=== PATIENT | female | born 1940 | race Hispanic/Latino ===

== ENCOUNTER 2016-10-24 09:23 | Outpatient (CLI) | payer MEDICARE ==
--- NOTE | 2016-10-24 16:27 | Magnetic Resonance Report ---
MRI LEFT HIP WITHOUT CONTRAST: 10/24/16 CLINICAL: Left hip pain. TECHNIQUE: Coronal and sagittal T1, coronal STIR and coronal and axial proton density fat sat sequences on a 1.5 Kimberly magnet. FINDINGS: No fracture or dislocation. Normal marrow signal of the left hip and acetabulum except for mild acetabular eburnation on the T1 sequence. No joint effusion. The muscles have normal signal. No fluid collection associated with the left hip. There is moderately severe osteoarthritis of the right hip with subchondral cyst formation of the femoral head and acetabulum. Mild flattening of the right femoral head with osteophytes. No right hip joint effusion. There is a multiloculated fluid collection the posterior and superior to the right hip. It measures 3.0 x 3.1 x 2.0 cm. The pelvic bones are intact except for mild bilateral superior acetabular eburnation. IMPRESSION:1. Mild osteoarthritis of the left hip. 2. 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 3. No fracture or dislocation. 4. No AVN. 5. An extra-articular multiloculated 3 cm fluid collection superior and posterior to the right hip is probably a collection of small ganglion cysts.
== END 2016-10-24 09:24 | disposition home or self-care (01) ==
LOC: SPVIMAG 09:23
PROVIDERS: ATTEND Psychiatry & Neurology Neurology
DX: M16.12 Unilateral primary osteoarthritis, left hip (principal); M16.11 Unilateral primary osteoarthritis, right hip
CPT/HCPCS: 73721

== ENCOUNTER 2018-06-27 23:22 | Inpatient (IN) | payer MEDICARE ==
--- NOTE | 2018-06-27 23:38 | Emergency Department Report ---
ED Shortness of Breath HPI - General Stated Complaint: CATRACHITO Time Seen by Provider: 06/27/18 23:29 - History of Present Illness Initial Comments: 78-year-old female presents to the ED with complaint of shortness of breath. Patient reports she was admitted here approximately one month ago for pneumonia. Patient states over the last couple of days she has been experiencing palpitations and generalized weakness. Patient reports dry cough as well. Denies fever. Patient states today she could hear herself wheezing, so decided to call EMS. EMS states patient had O2 sats of 91% on room air upon arrival. She was given 2.5 mg albuterol meds by paramedics. Patient denies chest pain. MD Complaint: shortness of breath -: days(s) (1) Severity: moderate Consistency: constant Improves With: nothing Worsens With: nothing Associated Symptoms: cough - Related Data Previous Rx's Medication Instructions Recorded Last Taken Type Aspirin [Aspirin BABY CHEW TAB] 81 mg PO QDAY #30 tab.chew 06/07/18 06/27/18 Rx AtorvaSTATin [Lipitor] 20 mg PO QHS tablet 06/07/18 06/27/18 Rx Furosemide [Lasix TAB] 40 mg PO QDAY #30 tablet 06/07/18 06/27/18 Rx LORazepam [Ativan] 1 mg PO Q6H PRN #10 tablet 06/07/18 06/27/18 Rx Metoprolol [Lopressor TAB] 25 mg PO BID #60 tablet 06/07/18 06/27/18 Rx Sertraline [Zoloft] 25 mg PO QDAY #30 tablet 06/07/18 06/27/18 Rx traMADol [Ultram 50 MG tab] 50 mg PO TID PRN #15 06/07/18 06/27/18 Rx Allergies Allergy/AdvReac Type Severity Reaction Status Date / Time No Known Allergies Allergy Verified 03/10/14 23:31 ED Review of Systems ROS: Stated complaint: CATRACHITO Other details as noted in HPI Comment: All other systems reviewed and negative Constitutional: denies: chills, fever Respiratory: cough, shortness of breath, wheezing Cardiovascular: palpitations. denies: chest pain Gastrointestinal: denies: nausea, vomiting Musculoskeletal: other (denies leg swelling) ED Past Medical Hx - Past Medical History Hx Hypertension: No Hx Heart Attack/AMI: Yes Hx Congestive Heart Failure: Yes Hx Diabetes: No Hx Deep Vein Thrombosis: No Hx Asthma: No Hx COPD: Yes Hx HIV: No - Surgical History Hx Coronary Stent: No Hx Pacemaker: No Hx Internal Defibrillator: No Additional Surgical History: R hip surgery, 03/29/18 - Social History Smoking Status: Never Smoker - Medications Home Medications: Home Medications Medication Instructions Recorded Confirmed Last Taken Type Aspirin [Aspirin BABY CHEW TAB] 81 mg PO QDAY #30 tab.chew 06/07/18 06/28/18 06/27/18 Rx AtorvaSTATin [Lipitor] 20 mg PO QHS tablet 06/07/18 06/28/18 06/27/18 Rx Furosemide [Lasix TAB] 40 mg PO QDAY #30 tablet 06/07/18 06/28/18 06/27/18 Rx LORazepam [Ativan] 1 mg PO Q6H PRN #10 tablet 06/07/18 06/28/18 06/27/18 Rx Metoprolol [Lopressor TAB] 25 mg PO BID #60 tablet 06/07/18 06/28/18 06/27/18 Rx Sertraline [Zoloft] 25 mg PO QDAY #30 tablet 06/07/18 06/28/18 06/27/18 Rx traMADol [Ultram 50 MG tab] 50 mg PO TID PRN #15 06/07/18 06/28/18 06/27/18 Rx ED Physical Exam - General General appearance: alert, in no apparent distress - Head Head exam: Present: atraumatic, normocephalic - Eye Eye exam: Present: normal appearance - ENT ENT exam: Present: mucous membranes moist - Neck Neck exam: Present: normal inspection - Respiratory Respiratory exam: Present: rales (left lung base) - Cardiovascular Cardiovascular Exam: Present: normal rhythm, tachycardia - GI/Abdominal GI/Abdominal exam: Present: soft. Absent: distended, tenderness - Extremities Exam Extremities exam: Absent: pedal edema, calf tenderness - Neurological Exam Neurological exam: Present: alert, oriented X3 - Psychiatric Psychiatric exam: Present: normal affect, normal mood - Skin Skin exam: Present: warm, dry, intact, normal color ED Course Vital Signs 06/27/18 06/27/18 06/27/18 23:30 23:34 23:45 Temperature 98.1 F Pulse Rate 122 H 102 H 100 H Respiratory 32 H 21 30 H Rate Blood Pressure 160/80 146/73 O2 Sat by Pulse 96 Oximetry 06/28/18 00:00 Temperature Pulse Rate 97 H Respiratory 24 Rate Blood Pressure 146/83 O2 Sat by Pulse Oximetry - Reevaluation(s) Reevaluation #1: 06/28/18 01:13 Advised pt that she would be admitted for CHF exacerbation. Pt reports she stopped taking her lasix b/c it made her go to the bathroom too much. ED Medical Decision Making - Lab Data Result diagrams: 06/28/18 00:00 06/28/18 00:00 - EKG Data -: EKG Interpreted by Dc EKG shows normal: sinus rhythm, axis, intervals, QRS complexes - EKG Data Interpretation: other (T wave inversions V2) - Radiology Data Radiology results: report reviewed, image reviewed - Medical Decision Making 78-year-old female with CHF exacerbation due to noncompliance with medication. She stopped taking it because it makes her to the bathroom too much. Patient with initial O2 sats 91% on room air. Chest x-ray shows bilateral lower lobe infiltrates with elevation of BNP of 2,700. Patient afebrile, wbc's normal. This is likely a acute CHF exacerbation. Patient given Lasix 80 mg IV. EKG shows no ST changes, troponin normal. Dr. Spann, hospitalist, to admit the patient. - Differential Diagnosis pneumonia, bronchitis, pulm edema Critical Care Time: Yes (35) Critical care time in (mins) excluding proc time.: 35 Critical care attestation.: If time is entered above; I have spent that time in minutes in the direct care of this critically ill patient, excluding procedure time. Critical Care Time: 35 minutes ED Disposition Clinical Impression: Hypoxia, Acute exacerbation of CHF (congestive heart failure), Hypokalemia Disposition: OP ADMIT IP TO THIS HOSP Is pt being admited?: Yes Condition: Stable Referrals: PRIMARY CARE, [Primary Care Provider] - 3-5 Days Time of Disposition: 01:16
--- NOTE | 2018-06-28 00:13 | XRay Report ---
FINAL REPORT PROCEDURE: XR CHEST 1V AP TECHNIQUE: Chest radiograph anteroposterior view. CPT 43101 HISTORY: sob COMPARISON: 06/05/2018 FINDINGS: Heart: Normal. Mediastinum/Vessels: Normal. Lungs/Pleural space: Developing bilateral lower lung infiltrates. Slight left effusion is suspected. There is no evidence of pneumothorax. Bony thorax: No acute osseous abnormality. Life support devices: None. IMPRESSION: There are developing bilateral lower lung infiltrates. The slight left effusion is suspected..
[2018-06-28 00:16] LABS: Basophils % (Auto) 0.7 % (0.0-1.8); Eosinophils % (Auto) 0.5 % (0.0-4.3); Hematocrit 24.3 % (30.3-42.9); Hemoglobin 7.7 gm/dl (10.1-14.3); Lymphocytes # (Auto) 1.6 K/mm3 (1.2-5.4); Lymphocytes % (Auto) 30.2 % (13.4-35.0); Mean Corpuscular HGB Conc 32 % (30-34); Mean Corpuscular Volume 81 fl (79-97); Monocytes # (Auto) 0.3 K/mm3 (0.0-0.8); Monocytes % (Auto) 6.3 % (0.0-7.3); Platelet Count 181 K/mm3 (140-440); Red Blood Count 2.99 M/mm3 (3.65-5.03); Red Cell Distribution Width 18.9 % (13.2-15.2)
[2018-06-28 00:26] LABS: INR 1.09 (0.87-1.13)
[2018-06-28 00:27] LABS: Partial Thromboplastin Time 25.3 Sec. (24.2-36.6)
[2018-06-28 00:38] LABS: BUN/Creatinine Ratio 24; Blood Urea Nitrogen 12 mg/dL (7-17); Calcium 8.1 mg/dL (8.4-10.2); Hemolysis Index 7
[2018-06-28] MEDS ORDERED: LASIX IV ONE (00:50)
[2018-06-28] MEDS ORDERED: K-DUR PO ONE (00:51)
[2018-06-28] MEDS ORDERED: ZOFRAN IV PRN (02:12)
[2018-06-28] MEDS ORDERED: SODIUM CHLORIDE FLUSH SYRINGE 10 ML IV PRN (02:12)
--- NOTE | 2018-06-28 02:14 | History and Physical Report ---
History of Present Illness Date of examination: 06/28/18 History of present illness: 78-year-old man history of coronary artery disease, CHF, and chronic pain came to the emergency room complaining of not feeling well today, she feels tired, hoarse. She states she feels something is wrong with her but she cannot explain it, she denies shortness of breath but admitted to the emergency room physician that she was short of breath just discharged from the hospital on June 07, she was treated for pneumonia Review of systems Constitutional: no weight loss, chills, fever Ears, eyes, nose, mouth and throat: no nasal congestion, no nasal discharge, no sinus pressure, no vision change, no red eye. Neck: No neck pain or rigidity. Cardiovascular: no palpitations, chest pain Respiratory: no cough, shortness of breath Gastrointestinal: no hematochezia, abdominal pain Genitourinary : no frequency , no hematuria Musculoskeletal: no joint swelling or muscle ache Integumentary: no rash, no pruritis Neurological: no parathesias, no focal weakness Endocrine: no cold or heat intolerance, no polyuria or polydipsia Hematologic/Lymphatic: no easy bruising, no easy bleeding, no gland swelling Allergic/Immunologic: no urticaria, no angioedema. PAST SURGICAL HISTORY: CABG, back surgery, hip surgery SOCIAL HISTORY: Denies alcohol, tobacco, drugs FAMILY HISTORY: Hypertension Medications and Allergies Allergies Allergy/AdvReac Type Severity Reaction Status Date / Time No Known Allergies Allergy Verified 03/10/14 23:31 Home Medications Medication Instructions Recorded Confirmed Last Taken Type RX: Aspirin [Aspirin BABY CHEW TAB] 81 mg PO QDAY #30 tab.chew 06/07/18 06/28/18 06/27/18 Rx RX: AtorvaSTATin [Lipitor] 20 mg PO QHS tablet 06/07/18 06/28/18 06/27/18 Rx RX: LORazepam [Ativan] 1 mg PO Q6H PRN #10 tablet 06/07/18 06/28/18 06/27/18 Rx RX: Metoprolol [Lopressor TAB] 25 mg PO BID #60 tablet 06/07/18 06/28/18 0 06/27/18 Rx RX: Sertraline [Zoloft] 25 mg PO QDAY #30 tablet 06/07/18 06/28/18 06/27/18 Rx RX: Furosemide [Lasix TAB] 40 mg PO QDAY PRN #30 tablet 07/01/18 06/28/18 06/27/18 Rx RX: Gabapentin [Neurontin] 100 mg PO Q8HR #90 capsule 07/01/18 Unknown Rx levoFLOXacin [Levaquin] 750 mg PO QDAY #3 tablet 07/01/18 Unknown Rx Active Meds: Active Medications Levofloxacin/Dextrose (Levaquin 500mg/100ml) 500 mg in 100 mls @ 100 mls/hr IV Q24HR [facility]; Protocol Exam - Physical Exam Narrative exam: General Apperance: The patient sitting in bed no acute distress HEENT: Normocephalic, atraumatic. Pupils equally round and reactive to light, extraocular movement intact, and no sclericterus or JVD or thyromegaly or nodule. Neck supple, no carotid bruit, mucous membranes moist, no exudate or erythema Heart: S1-S2, regular is rhythm Lungs: Decreased breath sound at bases bilaterally, breathing comfortable Abdomen: Positive bowel sounds, soft, nontender, nondistended, no organomegaly Extremities: No edema cyanosis clubbing Skin: no rash, nodule, warm and dry Neuro: Cranial nerves II through XII intact, speech is fluent, motor intact , sensation intact - Constitutional Vitals: Temp Pulse Resp BP Pulse Ox 98.1 F 93 H 26 H 148/73 98 06/27/18 23:34 06/28/18 01:45 06/28/18 01:45 06/28/18 01:45 06/28/18 01:45 Results - Labs CBC & Chem 7: 06/29/18 05:16 06/29/18 05:16 Labs: Abnormal lab results 06/28/18 06/28/18 Range/Units 00:00 00:00 RBC 2.99 L (3.65-5.03) M/mm3 Hgb 7.7 L (10.1-14.3) gm/dl Hct 24.3 L (30.3-42.9) % MCH 26 L (28-32) pg RDW 18.9 H (13.2-15.2) % Potassium 2.6 L* (3.6-5.0) mmol/L Chloride 107.8 H (98-107) mmol/L Creatinine 0.5 L (0.7-1.2) mg/dL Glucose 110 H (65-100) mg/dL Calcium 8.1 L (8.4-10.2) mg/dL NT-Pro-B Natriuret Pep 2759 H (0-900) pg/mL - Imaging and Cardiology EKG: image reviewed Chest x-ray: report reviewed Assessment and Plan Assessment Failure to thrive Bilateral pneumonia, present on the last admission coronary artery disease CHF Chronic pain Admitted to medicine consult physical therapy Start Levaquin, follow blood cultures Continue appropriate outpatient medications Start DVT prophylaxis
[2018-06-28] MEDS: LEVAQUIN 500MG/100ML 500 MG/100 ML BAG IV SCH ×2 (02:34→09:40)
[2018-06-28] MEDS: TYLENOL PO PRN ×4 (06:02→23:30)
[2018-06-28] MEDS: LOVENOX SUB-Q SCH ×2 (09:39→09:52)
[2018-06-28] MEDS: BABY ASPIRIN PO SCH (09:39)
[2018-06-28] MEDS: ZOLOFT PO SCH (09:39)
[2018-06-28] MEDS: SODIUM CHLORIDE FLUSH SYRINGE 10 ML IV SCH ×2 (09:40→21:41)
[2018-06-28] MEDS: LOPRESSOR PO SCH ×2 (09:40→21:38)
[2018-06-28] MEDS ORDERED: K-DUR PO NR (09:47)
[2018-06-28] MEDS ORDERED: LASIX PO SCH (10:00)
--- NOTE | 2018-06-28 15:31 | Event Note ---
Date: 06/28/18 73-year-old man history of coronary artery disease, CHF, and chronic pain came to the emergency room complaining of not feeling well. Wait for 2-D echo result, continue current management and as dictated in H&P.
[2018-06-28] MEDS: ATIVAN PO PRN ×2 (17:11→23:31)
[2018-06-28] MEDS: NEURONTIN PO SCH ×2 (21:51→21:52)
[2018-06-29 05:52] LABS: Basophils % (Auto) 0.4 % (0.0-1.8); Eosinophils # (Auto) 0.1 K/mm3 (0.0-0.4); Eosinophils % (Auto) 1.7 % (0.0-4.3); Hematocrit 25.6 % (30.3-42.9); Hemoglobin 7.9 gm/dl (10.1-14.3); Lymphocytes # (Auto) 2.3 K/mm3 (1.2-5.4); Lymphocytes % (Auto) 47.4 % (13.4-35.0); Mean Corpuscular HGB Conc 31 % (30-34); Mean Corpuscular Volume 81 fl (79-97); Monocytes # (Auto) 0.4 K/mm3 (0.0-0.8); Monocytes % (Auto) 8.3 % (0.0-7.3); Platelet Count 197 K/mm3 (140-440); Red Blood Count 3.17 M/mm3 (3.65-5.03); Red Cell Distribution Width 18.8 % (13.2-15.2)
[2018-06-29] MEDS: NEURONTIN PO SCH ×3 (06:01→21:57)
[2018-06-29 06:23] LABS: BUN/Creatinine Ratio 23; Blood Urea Nitrogen 14 mg/dL (7-17); Calcium 9.2 mg/dL (8.4-10.2); Hemolysis Index 2
[2018-06-29] MEDS: LEVAQUIN 500MG/100ML 500 MG/100 ML BAG IV SCH (09:52)
[2018-06-29] MEDS: BABY ASPIRIN PO SCH (09:53)
[2018-06-29] MEDS: LOPRESSOR PO SCH ×2 (09:53→21:57)
[2018-06-29] MEDS: ZOLOFT PO SCH (09:54)
[2018-06-29] MEDS: LOVENOX SUB-Q SCH ×2 (09:54→09:55)
--- NOTE | 2018-06-29 12:39 | Consultation ---
History of Present Illness Consult date: 06/29/18 Medications and Allergies Allergies Allergy/AdvReac Type Severity Reaction Status Date / Time No Known Allergies Allergy Verified 03/10/14 23:31 Home Medications Medication Instructions Recorded Confirmed Last Taken Type Aspirin [Aspirin BABY CHEW TAB] 81 mg PO QDAY #30 tab.chew 06/07/18 06/28/18 06/27/18 Rx AtorvaSTATin [Lipitor] 20 mg PO QHS tablet 06/07/18 06/28/18 06/27/18 Rx Furosemide [Lasix TAB] 40 mg PO QDAY #30 tablet 06/07/18 06/28/18 06/27/18 Rx LORazepam [Ativan] 1 mg PO Q6H PRN #10 tablet 06/07/18 06/28/18 06/27/18 Rx Metoprolol [Lopressor TAB] 25 mg PO BID #60 tablet 06/07/18 06/28/18 06/27/18 Rx Sertraline [Zoloft] 25 mg PO QDAY #30 tablet 06/07/18 06/28/18 06/27/18 Rx traMADol [Ultram 50 MG tab] 50 mg PO TID PRN #15 06/07/18 06/28/18 06/27/18 Rx Active Meds: Active Medications Acetaminophen (Tylenol) 650 mg PO Q4H PRN PRN Reason: Pain MILD(1-3)/Fever >100.5/MC Last Admin: 06/28/18 23:30 Dose: 650 mg Documented by: Aspirin (Baby Aspirin) 81 mg PO QDAY [facility] Last Admin: 06/29/18 09:53 Dose: 81 mg Documented by: Atorvastatin Calcium (Lipitor) 20 mg PO QHS [facility] Last Admin: 06/28/18 21:38 Dose: 20 mg Documented by: Enoxaparin Sodium (Lovenox) 40 mg SUB-Q QDAY [facility] Last Admin: 06/29/18 09:55 Dose: Not Given Documented by: Furosemide (Lasix) 40 mg IV 0600,1800 [facility] Gabapentin (Neurontin) 100 mg PO Q8HR [facility] Last Admin: 06/29/18 06:01 Dose: Not Given Documented by: Levofloxacin/Dextrose (Levaquin 500mg/100ml) 500 mg in 100 mls @ 100 mls/hr IV Q24HR [facility]; Protocol Last Admin: 06/29/18 09:52 Dose: 100 mls/hr Documented by: Lorazepam (Ativan) 1 mg PO Q6H PRN PRN Reason: Anxiety Last Admin: 06/28/18 23:31 Dose: 1 mg Documented by: Metoprolol Tartrate (Lopressor) 25 mg PO BID [facility] Last Admin: 06/29/18 09:53 Dose: 25 mg Documented by: Ondansetron HCl (Zofran) 4 mg IV Q8H PRN PRN Reason: Nausea And Vomiting Sertraline HCl (Zoloft) 25 mg PO QDAY [facility] Last Admin: 06/29/18 09:54 Dose: Not Given Documented by: Sodium Chloride (Sodium Chloride Flush Syringe 10 Ml) 10 ml IV BID [facility] Last Admin: 06/28/18 21:41 Dose: 10 ml Documented by: Sodium Chloride (Sodium Chloride Flush Syringe 10 Ml) 10 ml IV PRN PRN PRN Reason: LINE FLUSH Physical Examination Vital Signs Pulse Resp 122 H 32 H 06/27/18 23:30 06/27/18 23:30 Results 06/29/18 05:16 06/29/18 05:16 CBC 06/29/18 Range/Units 05:16 WBC 4.8 (4.5-11.0) K/mm3 RBC 3.17 L (3.65-5.03) M/mm3 Hgb 7.9 L (10.1-14.3) gm/dl Hct 25.6 L (30.3-42.9) % Plt Count 197 (140-440) K/mm3 Lymph # 2.3 (1.2-5.4) K/mm3 [place] # 0.4 (0.0-0.8) K/mm3 Eos # 0.1 (0.0-0.4) K/mm3 Baso # 0.0 (0.0-0.1) K/mm3 Comprehensive Metabolic Panel 06/29/18 Range/Units 05:16 Sodium 143 (137-145) mmol/L Potassium 4.0 (3.6-5.0) mmol/L Chloride 103.9 (98-107) mmol/L Carbon Dioxide 25 (22-30) mmol/L BUN 14 (7-17) mg/dL Creatinine 0.6 L (0.7-1.2) mg/dL Glucose 98 (65-100) mg/dL Calcium 9.2 (8.4-10.2) mg/dL Assessment and Plan Detailed Cardiology consult dictated.
[2018-06-29] MEDS: TYLENOL PO PRN (15:03)
--- NOTE | 2018-06-29 15:28 | Progress Note ---
Assessment and Plan Bilateral pneumonia -Continue antibiotics, nebs as needed Anemia, chronic - Continue to monitor H&H Acute on chronic systolic heart failure EF 40-45% - Gentle diuresis and cardiology consult, Monitor K+ Coronary artery disease/1VCABG - Continue Metoprolol 25 BID, low-dose aspirin, statin Moderate mitral regurgitation - Outpatient follow-up b/L LE pain - order venous doppler Hyperlipidemia, continue on statin General debility, PT consult Questionable dementia - Continue supportive care, patient lives with her daughter Brief history: This 78-year-old female with history of CHF, coronary artery disease, hyperlipidemia and questionable dementia presented to the hospital for not feeling well. Patient admitted to the hospital to treat pneumonia and hypokalemia. Physical exam: General Apperance: The patient sitting in bed no acute distress HEENT: Normocephalic, atraumatic. Pupils equally round and reactive to light, extraocular movement intact, and no sclericterus or JVD or thyromegaly or nodule. Neck supple, no carotid bruit, mucous membranes moist, no exudate or erythema Heart: S1-S2, regular is rhythm Lungs: Decreased breath sound at bases bilaterally, breathing comfortable Abdomen: Positive bowel sounds, soft, nontender, nondistended, no organomegaly Extremities: No edema cyanosis clubbing Skin: no rash, nodule, warm and dry Neuro: Cranial nerves II through XII intact, speech is fluent, motor intact , sensation intact Subjective Date of service: 07/01/18 Interval history: Patient seen and examined. Medical records and medication list reviewed. No acute event overnight noted by the RN. Patient complains of leg pain bilaterally. Potassium noted to be 2.6 this morning Patient is tolerating diet. Discussed plan of care at bedside with patient. Objective - Constitutional Vitals: Vital Signs - 12hr 06/29/18 15:18 O2 Sat by Pulse 95 Oximetry - Labs CBC & Chem 7: 06/29/18 05:16 06/29/18 05:16 Labs: Abnormal lab results 06/29/18 06/29/18 Range/Units 05:16 05:16 RBC 3.17 L (3.65-5.03) M/mm3 Hgb 7.9 L (10.1-14.3) gm/dl Hct 25.6 L (30.3-42.9) % MCH 25 L (28-32) pg RDW 18.8 H (13.2-15.2) % Lymph % (Auto) 47.4 H (13.4-35.0) % [place] % (Auto) 8.3 H (0.0-7.3) % Creatinine 0.6 L (0.7-1.2) mg/dL
--- NOTE | 2018-06-29 16:05 | Consultation ---
CARDIOLOGY CONSULTATION REFERRING PHYSICIAN: Kimberly Queen MD HISTORY OF PRESENT ILLNESS: An 78-year-old thin built, pleasant white woman with history of known coronary artery disease, history of CABG (one graft) several years ago, hyperlipidemia, was admitted with generalized weakness and progressive shortness of breath for 4-5 days before date of admission. No history of hypertension or diabetes mellitus. One set of troponin is negative. She has history of pneumonia in the recent past (admitted a month ago in this hospital) and was discharged home after treatment. Her chest x-ray during one view during this admission revealed bilateral lower lung infiltrates and some possible small left-sided pleural effusion. She also has had palpitations and complains of hoarseness of the voice. She has history of systolic congestive heart failure. PAST MEDICAL HISTORY: History of coronary artery disease, coronary artery bypass graft as described above. Her most recent echocardiogram was on 06/05/2018, which revealed lest-va-ikrydold left ventricular systolic dysfunction with EF around 40-45%, grade 1 diastolic left ventricular dysfunction, mitral annular calcification, moderate mitral regurgitation and mild tricuspid regurgitation. Mild pulmonary hypertension was seen with right ventricular systolic pressure of 44 mmHg. She was treated for pneumonia in this hospital a month ago. She has had back surgery, vein stripping surgery in the past. SOCIAL HISTORY: Not a smoker, not an alcoholic, no history of drug abuse. FAMILY HISTORY: Negative for premature coronary artery disease. PAST SURGICAL HISTORY: She has also had hip surgery in the past. The patient was scheduled for venous Doppler of the lower extremities and she was taken to the lab, but apparently during the procedure the patient wanted the procedure to be stopped as she was telling " ALLERGIES: None known. MEDICATIONS: Gabapentin 100 mg p.o. 3 times daily, IV Levaquin, lorazepam p.r.n., metoprolol tartrate 25 mg p.o. b.i.d., Zoloft 25 mg p.o. at bedtime daily, intravenous Lasix 40 mg b.i.d. REVIEW OF SYSTEMS: CARDIOVASCULAR: As described in the history. PULMONARY: As described in the history. BONE AND JOINTS: As described in the history. NEUROLOGICAL: She is confused on and off. Review of rest of the 10 systems is negative. PHYSICAL EXAMINATION: GENERAL: An 78-year-old thin built, pleasant white woman, not in distress. VITAL SIGNS: She is afebrile, pulse 85 per minute regular, blood pressure 140/86 mmHg, respirations 18 per minute. NEUROLOGIC: As described above. She is alert and awake, responds to simple questions pertinently. However, she is confused on and off and it appears that she has loss of memory for recent events. HEENT: Negative. NECK: Supple, no JVD, no bruit, no thyromegaly. HEART: PMI in the normal position, no palpable thrills or heart sounds. Auscultation of heart reveals S1, S2 heard, regular. S2 is loud, S4 is heard. No S3. Grade 2/6 harsh ejection systolic murmur is heard over the precardium. No rub. EXTREMITIES: Peripheral pulses felt. No edema. LUNGS: Mildly decreased air entry over both the bases. No bronchial breathing, no wheezing. ABDOMEN: Soft, benign. No organomegaly. SKIN: Negative. BONE AND JOINTS: Negative. LABORATORY DATA: Troponins as described above. ProBNP 2750. Potassium, BUN and creatinine within normal limits. Glucose 98. Chest x-ray findings as described in the history. EKG, normal sinus rhythm, left anterior fascicular block, atrial and ventricular premature contractions, left ventricular hypertrophy with repolarization changes. Nonspecific ST changes in the anterolateral leads and old anteroseptal myocardial infarction. IMPRESSION: 1. Bilateral pneumonia. 2. Acute on chronic systolic congestive heart failure. 3. Known coronary artery disease, history of CABG several years ago. 4. History of hyperlipidemia. 5. Moderate mitral regurgitation by echocardiogram. 6. History of pneumonia, which was treated fully a month ago. 7. General debility. 8. The patient is confused on and off possible dementia. RECOMMENDATIONS: 1. To continue current medications including intravenous antibiotics and intravenous diuretics. 2. Salt and fluid restriction is stressed. Further recommendations will follow. ADDENDUM At the time of admission, the patient was hypokalemic with potassium level of 2.8; now after potassium supplementation, this normalized now. The patient had EKGs and also the monitor. We would also check serum magnesium level and follow it up. JOB# [id number] [facility]
[2018-06-29] MEDS: ATIVAN PO PRN ×2 (17:52→23:49)
--- NOTE | 2018-06-29 19:19 | Vascular Lab Report ---
FINAL REPORT EXAM: VL VENOUS DUPLEX LE LT HISTORY: Bilateral intermittent pain in the right leg. History of left leg vein stripping 50 years a go TECHNIQUE: Ultrasound examination of the right lower extremity was performed to evaluate for DVT. PRIORS: None. FINDINGS: The common femoral, greater saphenous, femoral, and popliteal veins are well visualized and easily co mpressible throughout . Augmentation and color flow could not be performed as the patient requested t ermination of the exam early. Examination of the calf veins demonstrate good visualization and compressibility of the peroneal and posterior tibial veins . IMPRESSION: No evidence for DVT identified in the right lower extremity.
[2018-06-29] MEDS: SODIUM CHLORIDE FLUSH SYRINGE 10 ML IV SCH ×2 (21:57)
[2018-06-29] MEDS: LASIX IV SCH (23:35)
[2018-06-30] MEDS: NEURONTIN PO SCH ×3 (05:43→21:55)
[2018-06-30] MEDS: ATIVAN PO PRN ×3 (05:43→22:01)
[2018-06-30] MEDS: LASIX IV SCH ×2 (05:43→18:06)
[2018-06-30] MEDS: LOPRESSOR PO SCH ×2 (10:00→21:56)
[2018-06-30] MEDS: TYLENOL PO PRN (10:45)
[2018-06-30] MEDS: LEVAQUIN 500MG/100ML 500 MG/100 ML BAG IV SCH (10:46)
[2018-06-30] MEDS: BABY ASPIRIN PO SCH (10:47)
[2018-06-30] MEDS: LOVENOX SUB-Q SCH ×2 (10:47→10:51)
[2018-06-30] MEDS: ZOLOFT PO SCH (10:47)
[2018-06-30] MEDS: SODIUM CHLORIDE FLUSH SYRINGE 10 ML IV SCH ×2 (10:48→21:56)
--- NOTE | 2018-06-30 18:11 | Progress Note ---
Assessment and Plan Bilateral pneumonia Anemia Acute on chronic systolic heart failure EF 40-45% Gentle diuresis Monitor K+ Coronary artery disease/1VCABG Continue Metoprolol 25 BID Moderate mitral regurgitation Hyperlipidemia General debility Questionable dementia Subjective Date of service: 06/30/18 Principal diagnosis: bilateral pneumonia, acute on chronic CHF Interval history: Patient sit up in bed states that she feels somewhat better today Objective Vital Signs Temp Pulse Pulse Resp Resp BP Pulse Ox 06/30/18 17:18 98.6 F 82 18 156/76 97 06/30/18 12:19 81 114/57 98 06/30/18 10:45 20 06/30/18 10:00 72 80 20 20 103/53 98 06/30/18 09:14 98.6 F 72 18 103/53 98 06/30/18 03:55 97.8 F 62 16 129/68 96 06/29/18 22:48 98.4 F 77 16 124/77 98 06/29/18 22:32 986 H 06/29/18 21:57 84 120/66 06/29/18 20:29 18 06/29/18 20:27 80 06/29/18 19:27 98.1 F 84 16 120/66 98 - Physical Examination General: No Apparent Distress HEENT: Positive: PERRL Neck: Positive: neck supple, trachea midline Cardiac: Positive: Reg Rate and Rhythm Lungs: Positive: Normal Exam, clear to auscultation, Normal Breath Sounds Neuro: Positive: Grossly Intact Abdomen: Positive: Soft, Active Bowel Sounds Skin: Negative: Rash, Suspicious Lesions Gait: Normal Gait Extremities: Present: normal, warm. Absent: edema - Imaging and Cardiology EKG: image reviewed Echo: report reviewed (ECHO 06/12: EF 40-45%, mod MR)
--- NOTE | 2018-06-30 18:21 | Progress Note ---
Assessment and Plan Bilateral pneumonia -Continue antibiotics, nebs as needed hypokalemia, repelted, cont to monitor Anemia, chronic - Continue to monitor H&H Acute on chronic systolic heart failure EF 40-45% - Gentle diuresis and cardiology consult, Monitor K+ Coronary artery disease/1VCABG - Continue Metoprolol 25 BID, low-dose aspirin, statin Moderate mitral regurgitation - Outpatient follow-up b/L LE pain - negative venous doppler Hyperlipidemia, continue on statin General debility, PT consulted Questionable dementia - Continue supportive care, patient lives with her daughter Brief history: This 78-year-old female with history of CHF, coronary artery disease, hyperlipidemia and questionable dementia presented to the hospital for not feeling well. Patient admitted to the hospital to treat pneumonia and hyp okalemia. Physical exam: General Apperance: The patient sitting in bed no acute distress HEENT: Normocephalic, atraumatic. Pupils equally round and reactive to light, extraocular movement intact, and no sclericterus or JVD or thyromegaly or nodule. Neck supple, no carotid bruit, mucous membranes moist, no exudate or erythema Heart: S1-S2, regular is rhythm Lungs: Decreased breath sound at bases bilaterally, breathing comfortable Abdomen: Positive bowel sounds, soft, nontender, nondistended, no organomegaly Extremities: No edema cyanosis clubbing Skin: no rash, nodule, warm and dry Neuro: Cranial nerves II through XII intact, speech is fluent, motor intact , sensation intact Subjective Date of service: 06/30/18 Principal diagnosis: bilateral pneumonia, acute on chronic CHF Interval history: Patient seen and examined. Medical records and medication list reviewed. No acute event overnight noted by the RN. Patient cont to complains of leg pain bilaterally. Patient is tolerating diet. Discussed plan of care at bedside with patient. Objective - Constitutional Vitals: Vital Signs - 12hr 06/30/18 06/30/18 06/30/18 09:14 10:00 10:45 Temperature 98.6 F Pulse Rate 72 72 Pulse Rate [ 80 From Monitor] Respiratory 18 20 20 Rate Respiratory 20 Rate [Left Hip] Blood Pressure 103/53 103/53 O2 Sat by Pulse 98 98 Oximetry 06/30/18 06/30/18 12:19 17:18 Temperature 98.6 F Pulse Rate 81 82 Pulse Rate [ From Monitor] Respiratory 18 Rate Respiratory Rate [Left Hip] Blood Pressure 114/57 156/76 O2 Sat by Pulse 98 97 Oximetry - Labs CBC & Chem 7: 06/29/18 05:16 06/29/18 05:16
[2018-07-01] MEDS: LASIX IV SCH (05:34)
[2018-07-01] MEDS: NEURONTIN PO SCH ×2 (05:34→16:15)
[2018-07-01] MEDS: LEVAQUIN 500MG/100ML 500 MG/100 ML BAG IV SCH (10:04)
[2018-07-01] MEDS: SODIUM CHLORIDE FLUSH SYRINGE 10 ML IV SCH (10:05)
[2018-07-01] MEDS: ZOLOFT PO SCH (10:05)
[2018-07-01] MEDS: BABY ASPIRIN PO SCH (10:05)
[2018-07-01] MEDS: LOPRESSOR PO SCH (10:06)
[2018-07-01] MEDS: LOVENOX SUB-Q SCH (10:06)
[2018-07-01] MEDS: ATIVAN PO PRN ×2 (11:10→16:56)
--- NOTE | 2018-07-01 13:52 | Progress Note ---
Assessment and Plan Bilateral pneumonia Anemia Acute on chronic systolic heart failure EF 40-45% Euvolemia stable cardiac status Coronary artery disease/1VCABG Continue Metoprolol 25 BID Moderate mitral regurgitation Hyperlipidemia General debility Questionable dementia Subjective Date of service: 07/01/18 Principal diagnosis: bilateral pneumonia, acute on chronic CHF Interval history: Patient sitting up in bed without complaints Objective Vital Signs Temp Pulse Pulse Resp BP Pulse Ox 07/01/18 11:19 98.0 F 71 18 122/63 99 07/01/18 10:06 64 121/66 07/01/18 10:00 69 69 20 99 07/01/18 08:13 98.0 F 64 18 121/66 97 07/01/18 04:16 98.0 F 66 18 112/58 97 06/30/18 23:59 98.0 F 63 18 106/55 96 06/30/18 20:16 81 06/30/18 19:14 98.5 F 81 18 122/69 98 06/30/18 18:48 99 06/30/18 17:18 98.6 F 82 18 156/76 97 - Physical Examination General: No Apparent Distress HEENT: Positive: PERRL Neck: Positive: neck supple, trachea midline Cardiac: Positive: Reg Rate and Rhythm Lungs: Positive: Normal Exam, clear to auscultation Neuro: Positive: Grossly Intact Abdomen: Positive: Soft, Active Bowel Sounds Skin: Negative: Rash, Suspicious Lesions Gait: Normal Gait Extremities: Present: normal, warm. Absent: edema - Imaging and Cardiology EKG: image reviewed Echo: report reviewed (ECHO 06/12: EF 40-45%, mod MR)
--- NOTE | 2018-07-01 14:46 | Discharge Summary ---
Providers - Providers Date of Admission: 06/28/18 02:12 Date of discharge: 07/01/18 Attending physician: MICHELE LAMBERT 06/28/18 16:01 Physical Therapy Evaluation and Treat [CONS] Routine Comment: Reason For Exam: placement 06/29/18 07:57 Consult to Physician [CONS] Routine Comment: Consulting Provider: ALEN FERNÁNDEZ Physician Instructions: Reason For Exam: chf exacerbation Primary care physician: PROGRESS MAN Hospitalization Condition: Stable Pertinent studies: venous doppler CXR Hospital course: 78-year-old man history of coronary artery disease, CHF, and chronic pain came to the emergency room complaining of not feeling well, tired. She stated she feels something is wrong with her but she cannot explain it, she denies shortness of breath but admitted to the emergency room physician that she was short of breath. She was just discharged from the hospital on June 07, after treated for pneumonia. CXR in the Er showed developing b/l LL PNA. she was placed on abx and admitted for further evaluation and management. Discharge diagnosis and management; Bilateral pneumonia -treated with antibiotics, given nebs as needed hypokalemia, repleted, resolved Anemia, chronic - stable H&H Acute on chronic systolic heart failure EF 40-45% - cardiology consulted, Monitored K+, s/p gentle hydration - stable cardiac arteaga Coronary artery disease/1VCABG - Continue Metoprolol 25 BID, low-dose aspirin, statin Moderate mitral regurgitation - Outpatient follow-up b/L LE pain - negative venous doppler Hyperlipidemia, continue on statin General debility, PT consulted Questionable dementia - Continue supportive care, patient lives with her daughter Physical exam: General Apperance: The patient sitting in bed no acute distress HEENT: Normocephalic, atraumatic. Pupils equally round and reactive to light, extraocular movement intact, and no sclericterus or JVD or thyromegaly or nodule. Neck supple, no carotid bruit, mucous membranes moist, no exudate or erythema Heart: S1-S2, regular is rhythm Lungs: Decreased breath sound at bases bilaterally, breathing comfortable Abdomen: Positive bowel sounds, soft, nontender, nondistended, no organomegaly Extremities: No edema cyanosis clubbing Skin: no rash, nodule, warm and dry Neuro: Cranial nerves II through XII intact, speech is fluent, motor intact , sensation intact Disposition: [id number] HOME UNDER HOME HL Time spent for discharge: 34 minutes Core Measure Documentation - Palliative Care Palliative Care/ Comfort Measures: Not Applicable - Core Measures Any of the following diagnoses?: history only Exam - Constitutional Vitals: Temp Pulse Resp BP Pulse Ox 98.0 F 71 18 122/63 99 07/01/18 11:19 07/01/18 11:19 07/01/18 11:19 07/01/18 11:19 07/01/18 11:19 Plan Activity: fall precautions (use walker) Weight Bearing Status: Non-Weight Bearing Diet: low fat Durable Medical Equipment Needed Upon Discharge: Walker-Rolling Follow up with: PRIMARY CARE, [Primary Care Provider] - 3-5 Days Prescriptions: Gabapentin [Neurontin] 100 mg PO Q8HR #90 capsule levoFLOXacin [Levaquin] 750 mg PO QDAY #3 tablet
[2018-07-01 17:22] VITALS: BP 94/52
== END 2018-07-01 17:54 | disposition home health service (06) | DRG 291 ==
LOC: ED 23:22 → 4A 06-28 02:12
PROVIDERS: ADMIT Internal Medicine; ATTEND Internal Medicine
DX: I50.23 Acute on chronic systolic (congestive) heart failure (principal); J18.9 Pneumonia, unspecified organism; J44.0 Chronic obstructive pulmonary disease with (acute) lower respiratory infection; E87.6 Hypokalemia; I25.10 Atherosclerotic heart disease of native coronary artery without angina pectoris; R62.7 Adult failure to thrive; G89.29 Other chronic pain; I34.0 Nonrheumatic mitral (valve) insufficiency; F03.90 Unspecified dementia, unspecified severity, without behavioral disturbance, psychotic disturbance, mood disturbance, and anxiety; I27.20 Pulmonary hypertension, unspecified; R09.02 Hypoxemia; I25.2 Old myocardial infarction; Z79.82 Long term (current) use of aspirin; Z95.1 Presence of aortocoronary bypass graft; Z82.49 Family history of ischemic heart disease and other diseases of the circulatory system
CPT/HCPCS: 36415; 71045; 80048; 83735; 83880; 84132; 84484; 85025; 85610; 85730; 87116; 93005; 93010; 94760; 96374; G0378; A9270-GY; G8978-GP; G8979-GP; J1650; J1940; J1956

== ENCOUNTER 2018-07-12 13:11 | Emergency (ER) | payer MEDICARE ==
[2018-07-12 13:27] VITALS: BP 142/85
[2018-07-12 14:12] LABS: Basophils % (Auto) 0.4 % (0.0-1.8); Eosinophils % (Auto) 0.4 % (0.0-4.3); Hematocrit 30.5 % (30.3-42.9); Hemoglobin 9.3 gm/dl (10.1-14.3); Lymphocytes # (Auto) 1.9 K/mm3 (1.2-5.4); Lymphocytes % (Auto) 30.6 % (13.4-35.0); Mean Corpuscular HGB Conc 31 % (30-34); Mean Corpuscular Volume 79 fl (79-97); Monocytes # (Auto) 0.4 K/mm3 (0.0-0.8); Monocytes % (Auto) 6.3 % (0.0-7.3); Platelet Count 224 K/mm3 (140-440); Red Blood Count 3.86 M/mm3 (3.65-5.03); Red Cell Distribution Width 19.6 % (13.2-15.2)
[2018-07-12 14:21] LABS: Alanine Aminotransferase 10 units/L (7-56); Albumin 4.4 g/dL (3.9-5); BUN/Creatinine Ratio 20; Blood Urea Nitrogen 14 mg/dL (7-17); Calcium 9.2 mg/dL (8.4-10.2); Hemolysis Index 6
[2018-07-12 14:22] LABS: Bilirubin,Direct < 0.2 mg/dL (0-0.2)
--- NOTE | 2018-07-12 14:22 | XRay Report ---
AP CHEST: HISTORY: Shortness of breath Borderline heart size and pulmonary vessels are suspected. Trace bilateral pleural effusions are identified. No evidence for pneumonia or pneumothorax. IMPRESSION: Mild CHF.
[2018-07-12] MEDS ORDERED: LASIX IV ONE (14:26)
--- NOTE | 2018-07-12 15:14 | Emergency Department Report ---
ED General Adult HPI - General Chief complaint: Dyspnea/Respdistress Stated complaint: PAIN Time Seen by Provider: 07/12/18 14:00 Source: patient Mode of arrival: Ambulatory Limitations: No Limitations - History of Present Illness Initial comments: The patient presents to emergency department with chief complaint of shortness of breath. The patient has a history of congestive heart failure is not taking Lasix. Patient denies any chest pain, abdominal pain, or headache. Patient has no other complaints. Patient does state that her shortness of breath is worse when she lies flat. -: Gradual Severity scale (0 -10): 0 Consistency: constant Improves with: none Worsens with: none Associated Symptoms: denies other symptoms Treatments Prior to Arrival: none - Related Data Previous Rx's Medication Instructions Recorded Last Taken Type Aspirin [Aspirin BABY CHEW TAB] 81 mg PO QDAY #30 tab.chew 06/07/18 06/27/18 Rx AtorvaSTATin [Lipitor] 20 mg PO QHS tablet 06/07/18 06/27/18 Rx LORazepam [Ativan] 1 mg PO Q6H PRN #10 tablet 06/07/18 06/27/18 Rx Metoprolol [Lopressor TAB] 25 mg PO BID #60 tablet 06/07/18 06/27/18 Rx Sertraline [Zoloft] 25 mg PO QDAY #30 tablet 06/07/18 06/27/18 Rx Furosemide [Lasix TAB] 40 mg PO QDAY PRN #30 tablet 07/01/18 06/27/18 Rx Gabapentin [Neurontin] 100 mg PO Q8HR #90 capsule 07/01/18 Unknown Rx levoFLOXacin [Levaquin] 750 mg PO QDAY #3 tablet 07/01/18 Unknown Rx Furosemide [Lasix] 20 mg PO QDAY #10 tablet 07/12/18 Unknown Rx Allergies Allergy/AdvReac Type Severity Reaction Status Date / Time No Known Allergies Allergy Verified 03/10/14 23:31 ED Review of Systems ROS: Stated complaint: PAIN Other details as noted in HPI Comment: All other systems reviewed and negative Constitutional: denies: chills, fever Eyes: denies: eye pain, eye discharge, vision change ENT: denies: ear pain, throat pain Respiratory: shortness of breath. denies: cough, wheezing Cardiovascular: denies: chest pain, palpitations Endocrine: no symptoms reported Gastrointestinal: denies: abdominal pain, nausea, diarrhea Genitourinary: denies: urgency, dysuria, discharge Musculoskeletal: denies: back pain, joint swelling, arthralgia Skin: denies: rash, lesions Neurological: denies: headache, weakness, paresthesias Psychiatric: denies: anxiety, depression Hematological/Lymphatic: denies: easy bleeding, easy bruising ED Past Medical Hx - Past Medical History Previous Medical History?: Yes Hx Hypertension: Yes Hx Heart Attack/AMI: Yes Hx Congestive Heart Failure: Yes Hx Diabetes: No Hx Deep Vein Thrombosis: No Hx Arthritis: Yes Hx Asthma: No Hx COPD: Yes Hx HIV: No - Surgical History Past Surgical History?: Yes Hx Coronary Stent: No Hx Pacemaker: No Hx Internal Defibrillator: No Additional Surgical History: R hip surgery, 03/29/18 - Social History Smoking Status: Never Smoker - Medications Home Medications: Home Medications Medication Instructions Recorded Confirmed Last Taken Type Aspirin [Aspirin BABY CHEW TAB] 81 mg PO QDAY #30 tab.chew 06/07/18 06/28/18 06/27/18 Rx AtorvaSTATin [Lipitor] 20 mg PO QHS tablet 06/07/18 06/28/18 06/27/18 Rx LORazepam [Ativan] 1 mg PO Q6H PRN #10 tablet 06/07/18 06/28/18 06/27/18 Rx Metoprolol [Lopressor TAB] 25 mg PO BID #60 tablet 06/07/18 06/28/18 06/27/18 Rx Sertraline [Zoloft] 25 mg PO QDAY #30 tablet 06/07/18 06/28/18 06/27/18 Rx Furosemide [Lasix TAB] 40 mg PO QDAY PRN #30 tablet 07/01/18 06/28/18 06/27/18 Rx Gabapentin [Neurontin] 100 mg PO Q8HR #90 capsule 07/01/18 Unknown Rx levoFLOXacin [Levaquin] 750 mg PO QDAY #3 tablet 07/01/18 Unknown Rx Furosemide [Lasix] 20 mg PO QDAY #10 tablet 07/12/18 Unknown Rx ED Physical Exam - General Limitations: No Limitations General appearance: alert, in no apparent distress - Head Head exam: Present: atraumatic, normocephalic - Eye Eye exam: Present: normal appearance, PERRL, EOMI - ENT ENT exam: Present: mucous membranes moist - Neck Neck exam: Present: normal inspection - Respiratory Respiratory exam: Present: normal lung sounds bilaterally. Absent: respiratory distress, wheezes, rales - Cardiovascular Cardiovascular Exam: Present: regular rate, normal rhythm. Absent: systolic mur mur, diastolic murmur, rubs, gallop - GI/Abdominal GI/Abdominal exam: Present: soft, normal bowel sounds. Absent: distended, tenderness - Extremities Exam Extremities exam: Present: normal inspection - Back Exam Back exam: Present: normal inspection - Neurological Exam Neurological exam: Present: alert, oriented X3, CN II-XII intact. Absent: motor sensory deficit - Psychiatric Psychiatric exam: Present: normal affect, normal mood - Skin Skin exam: Present: warm, dry, intact, normal color. Absent: rash ED Course Vital Signs 07/12/18 13:24 Temperature 97.5 F L Pulse Rate 99 H Respiratory 16 Rate Blood Pressure 142/85 O2 Sat by Pulse 98 Oximetry ED Medical Decision Making - Lab Data Result diagrams: 07/12/18 13:40 07/12/18 13:40 Lab Results 07/12/18 07/12/18 Range/Units 13:40 13:40 WBC 6.2 (4.5-11.0) K/mm3 RBC 3.86 (3.65-5.03) M/mm3 Hgb 9.3 L (10.1-14.3) gm/dl Hct 30.5 (30.3-42.9) % MCV 79 (79-97) fl MCH 24 L (28-32) pg MCHC 31 (30-34) % RDW 19.6 H (13.2-15.2) % Plt Count 224 (140-440) K/mm3 Lymph % (Auto) 30.6 (13.4-35.0) % Miller % (Auto) 6.3 (0.0-7.3) % Eos % (Auto) 0.4 (0.0-4.3) % Baso % (Auto) 0.4 (0.0-1.8) % Lymph # 1.9 (1.2-5.4) K/mm3 Miller # 0.4 (0.0-0.8) K/mm3 Eos # 0.0 (0.0-0.4) K/mm3 Baso # 0.0 (0.0-0.1) K/mm3 Seg Neutrophils % 62.3 (40.0-70.0) % Seg Neutrophils # 3.9 (1.8-7.7) K/mm3 Sodium 143 (137-145) mmol/L Potassium 3.4 L (3.6-5.0) mmol/L Chloride 105.7 (98-107) mmol/L Carbon Dioxide 22 (22-30) mmol/L Anion Gap 19 mmol/L BUN 14 (7-17) mg/dL Creatinine 0.7 (0.7-1.2) mg/dL Estimated GFR > 60 ml/min BUN/Creatinine Ratio 20 % Glucose 100 (65-100) mg/dL Calcium 9.2 (8.4-10.2) mg/dL Magnesium 2.00 (1.7-2.3) mg/dL Total Bilirubin 0.30 (0.1-1.2) mg/dL Direct Bilirubin < 0.2 (0-0.2) mg/dL Indirect Bilirubin 0.1 mg/dL AST 15 (5-40) units/L ALT 10 (7-56) units/L Alkaline Phosphatase 64 (35-129) units/L Troponin T < 0.010 (0.00-0.029) ng/mL NT-Pro-B Natriuret Pep 1973 H (0-900) pg/mL Total Protein 7.0 (6.3-8.2) g/dL Albumin 4.4 (3.9-5) g/dL Albumin/Globulin Ratio 1.7 % - EKG Data -: EKG Interpreted by Me EKG shows normal: sinus rhythm Rate: normal - Medical Decision Making IV lasix given Critical Care Time: Yes Critical care time in (mins) excluding proc time.: 35 Critical care attestation.: If time is entered above; I have spent that time in minutes in the direct care of this critically ill patient, excluding procedure time. ED Disposition Clinical Impression: CHF (congestive heart failure) Disposition: TO HOME OR SELFCARE Is pt being admited?: No Does the pt Need Aspirin: No Condition: Stable Instructions: Heart Failure (ED) Additional Instructions: return if worse Prescriptions: Furosemide [Lasix] 20 mg PO QDAY #10 tablet Referrals: ALEN FERNÁNDEZ MD [Staff Physician] - 3-5 Days [facility] [Provider Group] - 3-5 Days [facility] [Provider Group] - 3-5 Days Time of Disposition: 15:17
== END 2018-07-12 15:45 | disposition home or self-care (01) ==
LOC: ED 13:11
DX: I11.0 Hypertensive heart disease with heart failure (principal); I50.9 Heart failure, unspecified; I25.2 Old myocardial infarction; M19.90 Unspecified osteoarthritis, unspecified site; J44.9 Chronic obstructive pulmonary disease, unspecified
CPT/HCPCS: 36415; 71045; 80048; 80076; 83735; 83880; 84484; 85025; 93005; 93010; 96374; 99291; J1940

== ENCOUNTER 2019-04-17 14:38 | Emergency (ER) | payer MEDICARE ==
[2019-04-17] MEDS ORDERED: NACL 0.9% 250ML 250 ML IV ONE (15:13)
--- NOTE | 2019-04-17 15:15 | Emergency Department Report ---
ED General Adult HPI - General Chief complaint: Syncope Stated complaint: SYNCOPY Time Seen by Provider: 04/17/19 14:54 Source: patient, EMS ( EMS documentation not available at time of chart dictation ), RN notes reviewed, old records reviewed Mode of arrival: Stretcher Limitations: Physical Limitation - History of Present Illness Initial comments: This is an 78-year-old female. I have evaluated this patient in the past. Her primary supervisor beater room is [facility] past history includes: chronic pain, dilated cardiomyopathy, hypertension, orthopedic hip replacement, insterstitial lung disease presents to the er with a complaint of nonspecific sensation of disorientation while driving. She reports no new or different physical pain. She denies DVT or pulmonary embolism risk factors. She reports that she was driving her car, and believes she was turning to the left, and was reportedly turning to the right. She also reports that she was awake the entire time, and all she could she was "blue wander." She denies headache, neck pain, chest pain, abdominal pain, new or different shortness of breath. She has chronic musculoskeletal pain. She is reportedly on chronic lorazepam for sleep assistance. To her best recollection, she denies new or different medications. She denies urinary symptoms at this time. -: Sudden Severity scale (0 -10): 0 Consistency: now resolved Improves with: none Worsens with: none - Related Data Home Medications Medication Instructions Recorded Confirmed Last Taken Acetaminophen [Tylenol] 1,000 mg PO Q8H PRN 04/17/19 04/17/19 Unknown Previous Rx's Medication Instructions Recorded Last Taken Type Furosemide [Lasix TAB] 20 mg PO QDAY #15 tablet 04/17/19 Unknown Rx Lisinopril [Zestril TAB] 10 mg PO QDAY #15 04/17/19 Unknown Rx Nitrofurantoin Karnes/M-Cryst 100 mg PO Q12HR #13 capsule 04/17/19 Unknown Rx [Macrobid CAP] Potassium Chloride [K-Dur] 10 meq PO QDAY #15 04/17/19 Unknown Rx Spironolactone [Aldactone] 25 mg PO QDAY #15 04/17/19 Unknown Rx Allergies Allergy/AdvReac Type Severity Reaction Status Date / Time No Known Allergies Allergy Verified 03/10/14 23:31 ED Review of Systems ROS: Stated complaint: SYNCOPY Other details as noted in HPI Constitutional: denies: fever Eyes: denies: eye discharge Respiratory: denies: wheezing Cardiovascular: denies: chest pain, palpitations, syncope Gastrointestinal: denies: nausea, vomiting Genitourinary: denies: dysuria Musculoskeletal: denies: back pain Skin: denies: lesions Neurological: denies: headache, numbness, paresthesias Psychiatric: anxiety Hematological/Lymphatic: denies: easy bleeding ED Past Medical Hx - Past Medical History Hx Hypertension: Yes Hx Heart Attack/AMI: Yes Hx Congestive Heart Failure: Yes Hx Diabetes: No Hx Deep Vein Thrombosis: No Hx Arthritis: Yes Hx Asthma: No Hx COPD: Yes Hx HIV: No - Surgical History Hx Coronary Stent: No Hx Pacemaker: No Hx Internal Defibrillator: No Additional Surgical History: R hip surgery, 03/29/18 - Social History Smoking Status: Never Smoker Substance Use Type: None - Medications Home Medications: Home Medications Medication Instructions Recorded Confirmed Last Taken Type Acetaminophen [Tylenol] 1,000 mg PO Q8H PRN 04/17/19 04/17/19 Unknown History Furosemide [Lasix TAB] 20 mg PO QDAY #15 tablet 04/17/19 Unknown Rx Lisinopril [Zestril TAB] 10 mg PO QDAY #15 04/17/19 Unknown Rx Nitrofurantoin Karnes/M-Cryst 100 mg PO Q12HR #13 capsule 04/17/19 Unknown Rx [Macrobid CAP] Potassium Chloride [K-Dur] 10 meq PO QDAY #15 04/17/19 Unknown Rx Spironolactone [Aldactone] 25 mg PO QDAY #15 04/17/19 Unknown Rx ED Physical Exam - General Limitations: No Limitations General appearance: alert, anxious - Head Head exam: Present: atraumatic, normocephalic - Eye Eye exam: Present: normal appearance, PERRL, EOMI, other (visual acuity intact to finger counting, color perception, reading at a close distance). Absent: nystagmus - ENT ENT exam: Present: normal exam, normal orophraynx, mucous membranes moist, normal external ear exam - Neck Neck exam: Present: normal inspection, full ROM. Absent: tenderness, meningismus - Respiratory Respiratory exam: Present: decreased breath sounds. Absent: respiratory dist ress - Cardiovascular Cardiovascular Exam: Present: regular rate, normal rhythm, normal heart sounds. Absent: bradycardia, tachycardia, irregular rhythm, systolic murmur, diastolic murmur, rubs, gallop - GI/Abdominal GI/Abdominal exam: Present: soft. Absent: distended, tenderness, guarding, rebound, rigid, pulsatile mass - Extremities Exam Extremities exam: Present: normal inspection, full ROM, other (2+ pulses noted in the bilateral upper, lower extremities. There is no long bone tenderness. Musculoskeletal compartments are soft. The pelvis is stable.). Absent: pedal edema, calf tenderness - Back Exam Back exam: Present: normal inspection, full ROM. Absent: tenderness, CVA tenderness (R), CVA tenderness (L), paraspinal tenderness, vertebral tenderness - Neurological Exam Neurological exam: Present: alert (no past pointing. There is no pronator drift. The patient is not able to tolerate Romberg examination secondary to chronic pain, she cannot tolerate [id number], secondary to chronic pain), oriented X3, normal gait (patient walks with a steady gait with a one-person assist), other (there is no facial droop. The tongue is midline. Extraocular movements are intact bilaterally. Patient speaking in full complete sentences. Shoulder shrug is intact bilaterally. Hearing is grossly intact bilaterally. Visual acuity intact to finger counting and color perception at a close distance. 5/5 strength 4 extremities. Sensation intact to light touch in 4 extremities.) - Psychiatric Psychiatric exam: Present: anxious - Skin Skin exam: Present: warm, dry, intact, normal color. Absent: rash ED Course Vital Signs 04/17/19 04/17/19 04/17/19 14:58 15:03 18:26 Temperature 98.3 F Pulse Rate 80 72 Respiratory 20 Rate Blood Pressure 189/94 182/85 Blood Pressure 189/94 [Left] O2 Sat by Pulse 99 99 Oximetry - Reevaluation(s) Reevaluation #1: 04/17/19 15:51 Differential diagnosis, including not limited to: Deconditioning, polypharmacy, orthostasis, vagal event, structural cardiac disease, pulmonary embolism, acute coronary syndrome, pneumonia Assessment and plan: 78-year-old female with nonspecific complaint, endorses that she did not lose loss of consciousness, with a GCS of 15, NIH score of 0, an unremarkable neurologic examination. She has known structural cardiac disease. She is afebrile with reassuring vital signs with the exception of hypertension. She does not endorse any physical pain at this time. She's been out of some of her medications for a few weeks. She does not appear to be floridly fluid overloaded. We will check basic laboratory studies, urinalysis, CT scan of the brain, EKG 2, troponin 2. The patient seems quite distressed when she is advised that she may need to discontinue her sedating medications. We will also put the patient in for case management consult. Reevaluation #2: 04/17/19 15:54 According to the pharmacy community engagement representative, the patient has been out of her lisinopril, spironolactone, and potassium, Lasix for 2 weeks. Of note, she has not run out of her Ativan. 04/17/19 17:09 Patient reassessed multiple times. She is resting comfortably, and in no acute distress. Her objective laboratory testing so far is unremarkable. She is found to have evidence of possible urinary tract infection. D-dimer is negative. Had echocardiogram May 2018, showed ejection fraction 40-45%. Patient had MRI of the brain in July 2017, which was negative for acute findings. Patient had a carotid duplex study performed, July 2017, which was fairly unremarkable. Her only incidental significant abnormalities was on MRA 2018 a moderate grade stenosis suspected at the left and one segment. However, the history and physical exam provided does not appear to be consistent with TIA or stroke. Reevaluation #3: 04/17/19 19:01 Troponin is unchanged negative 2. EKG is unchanged 2. Patient has been in this department for hours without clinical decompensation. We will refill her outpatient medications. Her outpatient supervisor beater room as indicated at his group can see her in a short turnaround. She'll be started on empiric antibiotics for presumed urinary tract infection. - Consultations Consultation #1: 04/17/19 17:16 Case is discussed with covering supervisor beater room for the patient's private cardiology group, Dr. Chloe Coleman We discussed her history, physical examination, laboratory studies, and objective studies that have been performed over the past year or so. I we both agree that the patient does not meet criteria for hospitalization, and he indicates that he was colleagues will be quite happy to see the patient in the office as an outside for follow-up. Repeat EKG, repeat troponin are pending at this time. ED Medical Decision Making - Lab Data Result diagrams: 04/17/19 15:44 04/17/19 15:44 Vital Signs 04/17/19 04/17/19 14:58 15:03 Temperature 98.3 F Pulse Rate 80 Respiratory 20 Rate Blood Pressure 189/94 Blood Pressure 189/94 [Left] O2 Sat by Pulse 99 99 Oximetry Lab Results 04/17/19 Range/Units Unknown Urine Bilirubin Neg (Negative) Urine RBC (Auto) < 1.0 (0.0-6.0) /HPF - EKG Data -: EKG Interpreted by Ar EKG shows normal: sinus rhythm Rate: normal - EKG Data When compared to previous EKG there are: no significant change 04/17/19 15:50 EKG today shows a sinus rhythm, left axis deviation, left anterior fascicular block, left ventricular hypertrophy, TN interval within normal limits, QTC within normal limits, there is borderline atrial enlargement, the EKG today is abnormal, there is a left anterior fascicular block, the EKG is unchanged from prior EKG from 07/12/1999 next - Radiology Data Radiology results: pending, report reviewed, image reviewed Noncontrast CT scan of the brain is negative for acute disease. Chronic findings noted. Lab Results 04/17/19 04/17/19 04/17/19 Range/Units 15:44 15:44 15:44 WBC 4.5 (4.5-11.0) K/mm3 RBC 3.94 (3.65-5.03) M/mm3 Hgb 13.6 (10.1-14.3) gm/dl Hct 40.2 (30.3-42.9) % MCV 102 H (79-97) fl MCH 34 H (28-32) pg MCHC 34 (30-34) % RDW 13.4 (13.2-15.2) % Plt Count 207 (140-440) K/mm3 PT 12.8 (12.2-14.9) Sec. INR 0.97 (0.87-1.13) D-Dimer 154.73 (0-234) ng/mlDDU Sodium 142 (137-145) mmol/L Potassium 4.0 (3.6-5.0) mmol/L Chloride 102.9 (98-107) mmol/L Carbon Dioxide 27 (22-30) mmol/L Anion Gap 16 mmol/L BUN 17 (7-17) mg/dL Creatinine 0.6 L (0.7-1.2) mg/dL Estimated GFR > 60 ml/min BUN/Creatinine Ratio 28 % Glucose 102 H (65-100) mg/dL Calcium 9.6 (8.4-10.2) mg/dL Magnesium 2.10 (1.7-2.3) mg/dL Total Bilirubin 0.30 (0.1-1.2) mg/dL AST 21 (5-40) units/L ALT 14 (7-56) units/L Alkaline Phosphatase 77 (35-129) units/L Total Creatine Kinase 129 (30-135) units/L Troponin T < 0.010 (0.00-0.029) ng/mL Total Protein 7.5 (6.3-8.2) g/dL Albumin 4.5 (3.9-5) g/dL Albumin/Globulin Ratio 1.5 % Urine Color (Yellow) Urine Turbidity (Clear) Urine pH (5.0-7.0) Ur Specific [place] (1.003-1.030) Urine Protein (Negative) mg/dL Urine Glucose (UA) (Negative) mg/dL Urine Ketones (Negative) mg/dL Urine Blood (Negative) Urine Nitrite (Negative) Urine Bilirubin (Negative) Urine Urobilinogen (<2.0) mg/dL Ur Leukocyte Esterase (Negative) Urine WBC (Auto) (0.0-6.0) /HPF Urine RBC (Auto) (0.0-6.0) /HPF Urine Bacteria (Auto) (Negative) /HPF Salicylates (2.8-20.0) mg/dL Urine Opiates Screen Urine Methadone Screen Acetaminophen (10.0-30.0) ug/mL Ur Barbiturates Screen Ur Phencyclidine Scrn Ur Amphetamines Screen U Benzodiazepines Scrn Urine Cocaine Screen U Marijuana (THC) Screen Drugs of Abuse Note Plasma/Serum Alcohol (0-0.07) % 04/17/19 04/17/19 04/17/19 Range/Units 15:44 15:44 15:44 WBC (4.5-11.0) K/mm3 RBC (3.65-5.03) M/mm3 Hgb (10.1-14.3) gm/dl Hct (30.3-42.9) % MCV (79-97) fl MCH (28-32) pg MCHC (30-34) % RDW (13.2-15.2) % Plt Count (140-440) K/mm3 PT (12.2-14.9) Sec. INR (0.87-1.13) D-Dimer (0-234) ng/mlDDU Sodium (137-145) mmol/L Potassium (3.6-5.0) mmol/L Chloride (98-107) mmol/L Carbon Dioxide (22-30) mmol/L Anion Gap mmol/L BUN (7-17) mg/dL Creatinine (0.7-1.2) mg/dL Estimated GFR ml/min BUN/Creatinine Ratio % Glucose (65-100) mg/dL Calcium (8.4-10.2) mg/dL Magnesium (1.7-2.3) mg/dL Total Bilirubin (0.1-1.2) mg/dL AST (5-40) units/L ALT (7-56) units/L Alkaline Phosphatase (35-129) units/L Total Creatine Kinase (30-135) units/L Troponin T (0.00-0.029) ng/mL Total Protein (6.3-8.2) g/dL Albumin (3.9-5) g/dL Albumin/Globulin Ratio % Urine Color (Yellow) Urine Turbidity (Clear) Urine pH (5.0-7.0) Ur Specific [place] (1.003-1.030) Urine Protein (Negative) mg/dL Urine Glucose (UA) (Negative) mg/dL Urine Ketones (Negative) mg/dL Urine Blood (Negative) Urine Nitrite (Negative) Urine Bilirubin (Negative) Urine Urobilinogen (<2.0) mg/dL Ur Leukocyte Esterase (Negative) Urine WBC (Auto) (0.0-6.0) /HPF Urine RBC (Auto) (0.0-6.0) /HPF Urine Bacteria (Auto) (Negative) /HPF Salicylates < 0.3 L (2.8-20.0) mg/dL Urine Opiates Screen Urine Methadone Screen Acetaminophen 9.4 L (10.0-30.0) ug/mL Ur Barbiturates Screen Ur Phencyclidine Scrn Ur Amphetamines Screen U Benzodiazepines Scrn Urine Cocaine Screen U Marijuana (THC) Screen Drugs of Abuse Note Plasma/Serum Alcohol < 0.01 (0-0.07) % 04/17/19 04/17/19 Range/Units Unknown Unknown WBC (4.5-11.0) K/mm3 RBC (3.65-5.03) M/mm3 Hgb (10.1-14.3) gm/dl Hct (30.3-42.9) % MCV (79-97) fl MCH (28-32) pg MCHC (30-34) % RDW (13.2-15.2) % Plt Count (140-440) K/mm3 PT (12.2-14.9) Sec. INR (0.87-1.13) D-Dimer (0-234) ng/mlDDU Sodium (137-145) mmol/L Potassium (3.6-5.0) mmol/L Chloride (98-107) mmol/L Carbon Dioxide (22-30) mmol/L Anion Gap mmol/L BUN (7-17) mg/dL Creatinine (0.7-1.2) mg/dL Estimated GFR ml/min BUN/Creatinine Ratio % Glucose (65-100) mg/dL Calcium (8.4-10.2) mg/dL Magnesium (1.7-2.3) mg/dL Total Bilirubin (0.1-1.2) mg/dL AST (5-40) units/L ALT (7-56) units/L Alkaline Phosphatase (35-129) units/L Total Creatine Kinase (30-135) units/L Troponin T (0.00-0.029) ng/mL Total Protein (6.3-8.2) g/dL Albumin (3.9-5) g/dL Albumin/Globulin Ratio % Urine Color Yellow (Yellow) Urine Turbidity Clear (Clear) Urine pH 6.0 (5.0-7.0) Ur Specific [place] 1.008 (1.003-1.030) Urine Protein <15 mg/dl (Negative) mg/dL Urine Glucose (UA) Neg (Negative) mg/dL Urine Ketones Neg (Negative) mg/dL Urine Blood Sm (Negative) Urine Nitrite Pos (Negative) Urine Bilirubin Neg (Negative) Urine Urobilinogen < 2.0 (<2.0) mg/dL Ur Leukocyte Esterase Sm (Negative) Urine WBC (Auto) 6.0 (0.0-6.0) /HPF Urine RBC (Auto) < 1.0 (0.0-6.0) /HPF Urine Bacteria (Auto) 3+ (Negative) /HPF Salicylates (2.8-20.0) mg/dL Urine Opiates Screen Presumptive negative Urine Methadone Screen Presumptive negative Acetaminophen (10.0-30.0) ug/mL Ur Barbiturates Screen Presumptive negative Ur Phencyclidine Scrn Presumptive negative Ur Amphetamines Screen Presumptive negative U Benzodiazepines Scrn Presumptive negative Urine Cocaine Screen Presumptive negative U Marijuana (THC) Screen Presumptive negative Drugs of Abuse Note Disclamer Plasma/Serum Alcohol (0-0.07) % Critical care attestation.: If time is entered above; I have spent that time in minutes in the direct care of this critically ill patient, excluding procedure time. ED Disposition Clinical Impression: Generalized weakness, UTI (urinary tract infection), Benzodiazepine dependence, Nonadherence to medication, HTN (hypertension) Disposition: - TO HOME OR SELFCARE Is pt being admited?: No Does the pt Need Aspirin: No Condition: Stable Instructions: Hypertension (ED) Additional Instructions: Please follow-up with your supervisor beater room within the next 1-2 days. We have contacted your covering cardiology group and they would like to see you in the office in the next 24-48 hours. Recommend the patient not drive or operate motor vehicles until cleared to do so by either her primary care doctor or supervisor beater room Take the prescribed medications as directed. Take the antibiotics as directed. Cultures were sent today, and results will be available in the next 3-5 days. Have a primary care doctor contact the medical records department to obtain culture results. Recommend gradual taper and discontinuation of long-term lorazepam and all sedating medications. Long-term utilization of medications like this may cause dependence, addiction, and may impair cognition, reaction time, and thought process. Therefore, the patient should follow up with whomever is prescribing her lorazepam, and discuss options for discontinuation and taper. Return to the emergency room right away with projectile vomiting, change in mental status, confusion, inability to tolerate liquid feeds, new, worsening or different symptoms not present on initial emergency room evaluation. Please make certain to take blood pressure medications. Long-term complications of hypertension and elevated blood pressure includes stroke, heart attack, disability, paralysis, loss of quality of life. Referrals: BELIA COLEMAN MD [Staff Physician] - 3-5 Days
[2019-04-17 15:46] LABS: Bacteria,Urine 3+ /HPF (Negative); Bilirubin,Urine NEG (Negative); Blood,Urine SM (Negative); Color,Urine Yellow (Yellow); Protein,Urine <15 mg/dL mg/dL (Negative); RBC,Urine < 1.0 /HPF (0.0-6.0); Urobilinogen,Urine < 2.0 mg/dL (<2.0)
[2019-04-17 15:50] LABS: Amphetamine Screen,Urine PRESUMPTIVE NEGATIVE; Benzodiazepines Screen,Urine PRESUMPTIVE NEGATIVE; Cannabinoid Screen,Urine PRESUMPTIVE NEGATIVE; Cocaine Screen,Urine PRESUMPTIVE NEGATIVE; Methadone Screen,Urine PRESUMPTIVE NEGATIVE; Opiate Screen,Urine PRESUMPTIVE NEGATIVE
[2019-04-17 15:56] LABS: Hematocrit 40.2 % (30.3-42.9); Hemoglobin 13.6 gm/dl (10.1-14.3); Mean Corpuscular HGB Conc 34 % (30-34); Mean Corpuscular Volume 102 fl (79-97); Platelet Count 207 K/mm3 (140-440); Red Blood Count 3.94 M/mm3 (3.65-5.03); Red Cell Distribution Width 13.4 % (13.2-15.2)
[2019-04-17] MEDS ORDERED: K-DUR PO SCH (16:00)
[2019-04-17] MEDS ORDERED: ZESTRIL PO SCH (16:00)
[2019-04-17] MEDS ORDERED: LASIX PO SCH (16:00)
[2019-04-17] MEDS ORDERED: ALDACTONE PO SCH (16:00)
[2019-04-17 16:07] LABS: INR 0.97 (0.87-1.13)
[2019-04-17 16:28] LABS: Alanine Aminotransferase 14 units/L (7-56); Albumin 4.5 g/dL (3.9-5); BUN/Creatinine Ratio 28; Blood Urea Nitrogen 17 mg/dL (7-17); Calcium 9.6 mg/dL (8.4-10.2); Hemolysis Index 13
--- NOTE | 2019-04-17 16:30 | Cat Scan Report ---
CT head/brain wo con INDICATION: Syncope. TECHNIQUE: Routine CT head without contrast. All CT scans at this location are performed using CT dos e reduction for ALARA by means of automated exposure control. COMPARISON: CT dated 05/08/2018. FINDINGS: BRAIN / INTRACRANIAL CONTENTS: No acute hemorrhage, mass effect, midline shift, or hydrocephalus. No appreciable acute large territorial or lacunar infarct. No chronic infarct. Age-commensurate ventricu lar and cisternal/sulcal prominence. Mild atherosclerotic calcifications in the intracranial internal carotid arteries. ORBITS: No significant abnormality of visualized orbits. SINUSES / MASTOIDS: No significant abnormality of visualized sinuses and mastoid air cells. ADDITIONAL FINDINGS: None. IMPRESSION: 1. No acute intracranial abnormality. No adverse change from the prior exam. Signer Name: Loi Barrow MD Signed: 04/17/2019 4:25 PM Workstation Name: [id number]
[2019-04-17] MEDS ORDERED: MACROBID PO ONE (16:31)
--- NOTE | 2019-04-17 18:03 | XRay Report ---
CHEST 1 VIEW INDICATION / CLINICAL INFORMATION: weak near syncope. COMPARISON: 07/12/2018 FINDINGS: SUPPORT DEVICES: None. HEART / MEDIASTINUM: No significant abnormality. LUNGS / PLEURA: There are basilar interstitial opacities. This appears unchanged from the prior study . There is venous congestion. . No pneumothorax. ADDITIONAL FINDINGS: No significant additional findings. IMPRESSION: 1. No significant change. Signer Name: Hector Mandel MD Signed: 04/17/2019 5:58 PM Workstation Name: [id number]
[2019-04-17 20:29] VITALS: BP 130/58
== END 2019-04-17 20:50 | disposition home or self-care (01) ==
LOC: ED 14:38
DX: N39.0 Urinary tract infection, site not specified (principal); R53.1 Weakness; F13.20 Sedative, hypnotic or anxiolytic dependence, uncomplicated; I11.0 Hypertensive heart disease with heart failure; I50.9 Heart failure, unspecified; M19.90 Unspecified osteoarthritis, unspecified site; J44.9 Chronic obstructive pulmonary disease, unspecified; I25.2 Old myocardial infarction; Z98.890 Other specified postprocedural states; Z79.899 Other long term (current) drug therapy
CPT/HCPCS: 36415; 70450; 71045; 80053; 80307; 81001; 82550; 83735; 84484; 85027; 85379; 85610; 87086; 93005; 93010; 99285; J7050; 80320; 87076; 87186; G0480